=== PATIENT | female | born 1990 | race Asian ===

== ENCOUNTER 2020-03-17 11:09 | Observation (INO) | payer OTHER ==
[~2020-03-17] VITALS: Ht 165.1 cm; Wt 86.2 kg
[2020-03-17 11:48] VITALS: BP 120/74
== END 2020-03-17 14:00 | disposition home or self-care (01) ==
LOC: MLD 11:09
PROVIDERS: ADMIT Obstetrics & Gynecology; ATTEND Obstetrics & Gynecology
DX: O47.1 False labor at or after 37 completed weeks of gestation (principal); O34.219 Maternal care for unspecified type scar from previous cesarean delivery; Z3A.38 38 weeks gestation of pregnancy
CPT/HCPCS: 59025; 76815; G0378; Q0092